=== PATIENT | male | born 1995 | race American Indian/Alaskan Native ===

== ENCOUNTER 2017-06-25 19:58 | Emergency (ER) | payer SELFPAY ==
[2017-06-25 21:43] LABS: Bilirubin,Urine NEG (Negative); Blood,Urine NEG (Negative); Ketones,Urine TR mg/dL (Negative); Leukocyte Esterase,Urine NEG (Negative); Mucus,Urine FEW /HPF; Nitrite,Urine NEG (Negative); Protein,Urine <15 mg/dL mg/dL (Negative); Urobilinogen,Urine < 2.0 mg/dL (<2.0); WBC,Urine < 1.0 /HPF (0.0-6.0)
[2017-06-26] MEDS ORDERED: NORCO 5/325 PO ONE (01:27)
[2017-06-26] MEDS ORDERED: TORADOL IM ONE (01:27)
[2017-06-26] MEDS ORDERED: FLEXERIL PO ONE (01:27)
[2017-06-26 02:28] VITALS: BP 121/88
--- NOTE | 2017-06-26 02:32 | Emergency Department Report ---
ED Back Pain/Injury HPI - General Chief Complaint: Back Pain/Injury Stated Complaint: LOWER BACK PAIN Source: patient Mode of arrival: Ambulatory Limitations: No Limitations - History of Present Illness Initial Comments: 22 year old male presents to ED with lower back pain x 2days. patient denies hematuria, dysuria, penile discharge, bowel/urinary incontinence, saddle anesthesia, fevers. patient is stable, neurologically intact and in no acute distress. patient is ambulatory. patient states he would like work excuse prior to discharge. MD Complaint: back pain -: Sudden Similar Symptoms Previously: Yes Radiation: none Severity: mild Quality: aching Consistency: constant Improves With: immobilization Worsens With: movement Context: while lifting, turning/twisting Associated Symptoms: denies: confusion, weakness, chest pain, numbness, difficulty walking, cough, difficulty urinating, incontinence, fever/chills, constipation, headaches, loss of appetite, nausea/vomiting, rash, seizure, shortness of breath - Related Data Previous Rx's Medication Instructions Recorded Last Taken Type Acetaminophen/Codeine [Tylenol #3] 1 tab PO Q4HR PRN #20 tablet 01/25/15 Unknown Rx Cyclobenzaprine [Flexeril 10mg] 10 mg PO 4XD #20 tablet 01/25/15 Unknown Rx Meloxicam [Mobic] 7.5 mg PO QDAY #7 tablet 06/26/17 Unknown Rx methOCARBAMOL [Robaxin TAB] 500 mg PO TID #21 tab 06/26/17 Unknown Rx Allergies Allergy/AdvReac Type Severity Reaction Status Date / Time No Known Allergies Allergy Verified 01/25/15 01:50 ED Review of Systems ROS: Stated complaint: LOWER BACK PAIN Other details as noted in HPI Constitutional: denies: chills, fever Eyes: denies: eye pain, eye discharge, vision change ENT: denies: ear pain, throat pain Respiratory: denies: cough, shortness of breath, wheezing Cardiovascular: denies: chest pain, palpitations Endocrine: no symptoms reported Gastrointestinal: denies: abdominal pain, nausea, diarrhea Genitourinary: denies: urgency, dysuria, frequency, hematuria, discharge Musculoskeletal: back pain, arthralgia. denies: joint swelling Skin: denies: rash, lesions Neurological: denies: headache, weakness, numbness, paresthesias, confusion, abnormal gait, vertigo Psychiatric: denies: anxiety, depression Hematological/Lymphatic: denies: easy bleeding, easy bruising ED Past Medical Hx - Past Medical History Previous Medical History?: Yes Hx Hypertension: No Hx Heart Attack/AMI: No Hx Diabetes: No Hx Deep Vein Thrombosis: No Hx Liver Disease: No Hx Sickle Cell Disease: No Hx Arthritis: No Hx Headaches / Migraines: No Hx Asthma: Yes Additional medical history: Obesity. Chronic Back Strain/Pain - Surgical History Past Surgical History?: No Hx Pacemaker: No Hx Internal Defibrillator: No Hx Appendectomy: No - Social History Smoking Status: Never Smoker - Medications Home Medications: Home Medications Medication Instructions Recorded Confirmed Last Taken Type Acetaminophen/Codeine [Tylenol #3] 1 tab PO Q4HR PRN #20 tablet 01/25/15 Unknown Rx Cyclobenzaprine [Flexeril 10mg] 10 mg PO 4XD #20 tablet 01/25/15 Unknown Rx Meloxicam [Mobic] 7.5 mg PO QDAY #7 tablet 06/26/17 Unknown Rx methOCARBAMOL [Robaxin TAB] 500 mg PO TID #21 tab 06/26/17 Unknown Rx ED Physical Exam - General Limitations: No Limitations General appearance: alert, in no apparent distress - Head Head exam: Present: atraumatic, normocephalic - Eye Eye exam: Present: normal appearance - ENT ENT exam: Present: mucous membranes moist - Neck Neck exam: Present: normal inspection - Respiratory Respiratory exam: Present: normal lung sounds bilaterally. Absent: respiratory distress, wheezes, rales, rhonchi - Cardiovascular Cardiovascular Exam: Present: regular rate, normal rhythm. Absent: systolic murmur, diastolic murmur, rubs, gallop - GI/Abdominal GI/Abdominal exam: Present: soft, normal bowel sounds. Absent: distended, tenderness, guarding, rebound - Rectal Rectal exam: Present: deferred - Extremities Exam Extremities exam: Present: normal inspection, full ROM. Absent: tenderness - Back Exam Back exam: Present: normal inspection, full ROM. Absent: tenderness, paraspinal tenderness, vertebral tenderness - Neurological Exam Neurological exam: Present: alert, oriented X3, normal gait - Psychiatric Psychiatric exam: Present: normal affect, normal mood - Skin Skin exam: Present: warm, dry, intact, normal color. Absent: rash ED Course Vital Signs 06/25/17 06/26/17 06/26/17 20:39 02:02 02:27 Temperature 98.6 F 98 F Pulse Rate 66 77 Respiratory 16 18 18 Rate Blood Pressure 119/83 121/88 [Right] O2 Sat by Pulse 96 Oximetry ED Medical Decision Making - Lab Data Labs 06/25/17 21:23 Urine Color Yellow Urine Turbidity Clear Urine pH 6.0 Ur Specific [place] 1.020 Urine Protein <15 mg/dl Urine Glucose (UA) Neg Urine Ketones Tr Urine Blood Neg Urine Nitrite Neg Urine Bilirubin Neg Urine Urobilinogen < 2.0 Ur Leukocyte Esterase Neg Urine WBC (Auto) < 1.0 Urine RBC (Auto) 1.0 U Epithel Cells (Auto) < 1.0 Urine Mucus Few - Medical Decision Making 22 year old male presents to ED with lower back pain x 1-2 days. patient has no tenderness on palpation during exam during ED visit. patient has decreased pain after medication during ED visit. patient is stable, neurologically intact and in no acute distress. patient is ambulatory. Critical care attestation.: If time is entered above; I have spent that time in minutes in the direct care of this critically ill patient, excluding procedure time. ED Disposition Clinical Impression: Lumbar strain Qualifiers: Encounter type: initial encounter Qualified Code(s): S39.012A - Strain of muscle, fascia and tendon of lower back, initial encounter Disposition: - TO HOME OR SELFCARE Is pt being admited?: No Does the pt Need Aspirin: No Condition: Stable Instructions: Muscle Strain (ED) Prescriptions: Meloxicam [Mobic] 7.5 mg PO QDAY #7 tablet methOCARBAMOL [Robaxin TAB] 500 mg PO TID #21 tab Referrals: PRIMARY CARE, [Primary Care Provider] - 3-5 Days Forms: Work/School Release Form(ED)
== END 2017-06-26 02:29 | disposition home or self-care (01) ==
LOC: ED 19:58
DX: S39.012A Strain of muscle, fascia and tendon of lower back, initial encounter (principal); J45.909 Unspecified asthma, uncomplicated; X58.XXXA Exposure to other specified factors, initial encounter; Y93.89 Activity, other specified; Y92.89 Other specified places as the place of occurrence of the external cause; Y99.8 Other external cause status
CPT/HCPCS: 81001; 96372; 99283; J1885